=== PATIENT | female | born 1960 | race Caucasian/White ===

== ENCOUNTER 2018-06-10 05:52 | Day surgery (SDC) | payer OTHER ==
[2018-06-08 11:11] VITALS: BMI 28.7
[2018-06-10] MEDS ORDERED: methylPREDNISolone ACET (DEPO) 40 MG/1 ML VIAL ONE (07:09)
[2018-06-10] MEDS ORDERED: BUPIVACAINE HCL 0.25% 125 MG/50 ML VIAL ONE (07:10)
[2018-06-10] MEDS ORDERED: EPINEPHrine 1:1,000 1 MG/1 ML - 30ML VIAL (INJECTION) ONE (07:10)
[2018-06-10] MEDS ORDERED: MIDAZOLAM HCL 2 MG/2 ML SINGLE DOSE VIAL ONE (07:15)
[2018-06-10] MEDS ORDERED: SUCCINYLCHOLINE CHLORIDE 200 MG/10 ML VIAL ONE (07:44)
[2018-06-10] MEDS ORDERED: PROPOFOL 20 ML ONE ×3 (07:44→08:19)
[2018-06-10] MEDS ORDERED: ceFAZolin SODIUM 1 GM VIAL ONE (07:48)
[2018-06-10] MEDS ORDERED: DEXAMETHASONE SOD PHOSPHATE 4 MG/1 ML VIAL ONE (07:51)
[2018-06-10] MEDS ORDERED: ONDANSETRON 4 MG/2 ML VIAL ONE ×2 (07:51→08:50)
[2018-06-10] MEDS ORDERED: BUPIVACAINE HCL/PF 0.25% (2.5MG/ML) 10 ML VIAL IJ ONE (08:16)
[2018-06-10] MEDS ORDERED: methylPREDNISolone ACET (DEPO) 40 MG/1 ML VIAL IM ONE (08:17)
[2018-06-10] MEDS ORDERED: oxyCODONE HCL 5 MG TABLET PO PRN (08:31)
[2018-06-10] MEDS ORDERED: ONDANSETRON 4 MG/2 ML VIAL IVPUSH PRN (08:31)
--- NOTE | 2018-06-10 08:31 | OP ---
Operative Note - Note: Operative Date: 06/10/18 Pre-Operative Diagnosis: Right knee osteoarthritis Operation: Right knee arthroscopy Surgeon: Matt Ray Digestion Operator: True Hays Estimated Blood Loss (mls): 5 Fluid Volume Replaced (mls): 300 Operative Report Dictated: Yes
--- NOTE | 2018-06-10 08:32 | SURG ---
Surgery Underwriting Manager Note Underwriting Manager: True Hays PA-C Date of Service: 06/10/18 Diagnosis: Right knee osteoarthritis Procedure: Right knee arthroscopy I was present for the entirety of the operative procedure. For further detail, please refer to operative report.
[2018-06-10] MEDS ORDERED: LACTATED RINGERS SOLUTION 1,000 ML IV SCH (08:45)
[2018-06-10] MEDS ORDERED: ONDANSETRON 4 MG/2 ML VIAL IVPUSH ONE (08:45)
[2018-06-10] MEDS ORDERED: fentaNYL CITRATE 250 MCG/5 ML VIAL IVPUSH ONE (08:47)
[2018-06-10 10:33] VITALS: PULSE 81
[2018-06-10 10:52] VITALS: BP 101/72; TEMP 98
--- NOTE | 2018-06-10 21:41 | OP ---
DATE OF OPERATION: 06/10/2018 SURGEON: Matt Ray MD AIRPORT DRIVER: Eduin Ray MD PREOPERATIVE DIAGNOSIS: Medial meniscal tear with osteoarthritis, right knee. POSTOPERATIVE DIAGNOSIS: Osteoarthritis, right knee. OPERATION PERFORMED: Right arthroscopic washout, debridement, and arthroscopic lavage. ANESTHESIA: Spinal anesthesia with conscious sedation. ANTIBIOTICS GIVEN: Kefzol 2 g. PROCEDURE: Patient correctly identified, brought into the operating room. Right lower extremity was prepped, free draped in the routine manner with Betadine scrub solution, wiped off with alcohol, DuraPrep applied. The right lower extremity was examined under anesthesia. Hip was normal. Knee: No effusion. No synovial thickening and there was no, under anesthesia, significant sign of any internal derangement of the knee. A Melody test was negative. Hill-Sachs was negative. Through the anterolateral portal, the arthroscopic procedure was performed. This enabled a clear vision of the suprapatellar pouch and the lateral gutters of the popliteal hiatus. All revealed the presence of extensive amount of loose, degenerative material floating in the fluid of the arthroscopic fluid instilled into the joint. The retropatellar cartilage was relatively normal with 1 or 2 patchy areas of Outerbridge 2 level changes. The trochlear groove had only some degenerative changes along the peripheral margin of the groove, but the actual hyaline cartilage appeared to be normal. The hyaline cartilage of the femur and tibia as well as the tibial plateaus was normal excepting for the medial femoral condyle where there were Outerbridge layer 2 changes. The menisci were evaluated carefully and found to be completely intact. The intercondylar notch, the cruciate ligaments were visualized. However, there was an extensive amount of thickened ligamentum mucosa and this was left well alone. No meniscal tear was seen. DIAGNOSIS: Early osteoarthritis, right knee. The knee was lavaged appropriately, and the portals were closed with 3-0 nylon. A light dressing applied. Operation went well with no complications. Matt Ray MD DS/[id number] MTDD
== END 2018-06-10 10:35 | disposition home or self-care (01) ==
LOC: FASU 05:52
PROVIDERS: ATTEND Orthopaedic Surgery Orthopaedic Surgery of the Spine
PROC: 0SBC4ZZ Excision of Right Knee Joint, Percutaneous Endoscopic Approach (ICD-10-PCS; principal; 2018-06-10 07:30)
DX: M17.11 Unilateral primary osteoarthritis, right knee (principal)
CPT/HCPCS: 82962; 94760

== ENCOUNTER 2019-11-03 10:58 | Day surgery (SDC) | payer OTHER ==
[2019-10-27 12:47] VITALS: BMI 27.3
[2019-11-03] MEDS ORDERED: methylPREDNISolone ACET (DEPO) 40 MG/1 ML VIAL ONE ×3 (11:26→15:34)
[2019-11-03] MEDS ORDERED: BUPIVACAINE HCL/PF 2.5 MG/ML - 30 ML VIAL IJ ONE (11:26)
[2019-11-03] MEDS ORDERED: EPINEPHrine/PF 1 MG/1 ML (1:1,000) AMPULE ONE ×2 (11:28→11:29)
[2019-11-03] MEDS ORDERED: MIDAZOLAM HCL 2 MG/2 ML SINGLE DOSE VIAL ONE (14:29)
[2019-11-03] MEDS ORDERED: PROPOFOL 20 ML ONE (14:29)
[2019-11-03] MEDS ORDERED: ePHEDrine SULFATE 50 MG/1 ML AMPULE ONE (14:45)
[2019-11-03] MEDS ORDERED: KETOROLAC TROMETHAMINE 30 MG/1 ML VIAL ONE (15:38)
[2019-11-03] MEDS ORDERED: oxyCODONE HCL 5 MG TABLET PO PRN ×2 (15:54)
[2019-11-03] MEDS ORDERED: PROMETHAZINE HCL 25 MG/1 ML VIAL IVPUSH PRN (15:54)
[2019-11-03] MEDS ORDERED: ONDANSETRON 4 MG/2 ML VIAL IVPUSH PRN (15:54)
--- NOTE | 2019-11-03 15:57 | PN ---
Progress Note (short form) - Note Progress Note: 59F s/p right knee arthroscopy POD #0. -Pain control. -WBAT RLE. -Post-op analgesic meds ordered for delivery. -f/u post-op trial of void. -Diet as tolerated. -Keep dressing clean & dry; d/c on Wednesday & place waterproof Band-Aids over incision sites. -Cane vs crutches. -f/u [facility] [place] office 7-10 days; call for appointment; . Matt Ray MD (Orthopaedic Surgery).
[2019-11-03] MEDS ORDERED: PATIENT'S OWN MEDICATION (NON-FORMULARY) (Oxycodone Hcl [Oxycodone Hcl] 30 MG) PO PRN (15:59)
--- NOTE | 2019-11-03 15:59 | OP ---
Operative Note - Note: Operative Date: 11/03/19 Pre-Operative Diagnosis: Internal derangement right knee Operation: 1. Surgical arthroscopy right knee. 2. Removal of multiple loose bodies Findings: Synovial chondromatosis Grade 3 paterllar osteomalacia Surgeon: Matt Ray Laboratory Veterinarian: Eduin Ray Anesthesiologist/CONCRETING SUPERVISOR: Ki High Anesthesia: General Estimated Blood Loss (mls): 5 Fluid Volume Replaced (mls): 900 (Crystalloid) Operative Report Dictated: Yes
[2019-11-03] MEDS ORDERED: ZOLPIDEM TARTRATE 5 MG TABLET PO PRN (16:16)
[2019-11-03] MEDS ORDERED: metFORMIN HCL 500 MG TABLET (FP) PO SCH (16:30)
[2019-11-03 16:55] VITALS: TEMP 98.5
[2019-11-03 17:51] VITALS: BP 108/51; PULSE 81
[2019-11-03] MEDS ORDERED: PATIENT'S OWN MEDICATION (NON-FORMULARY) (Gabapentin [Gabapentin] 800 MG) PO SCH (22:00)
[2019-11-03] MEDS ORDERED: MONTELUKAST NA 10 MG TABLET PO SCH (22:00)
[2019-11-03] MEDS ORDERED: PATIENT'S OWN MEDICATION (NON-FORMULARY) (Zolpidem Tartrate [Ambien] 10 MG) PO SCH (22:00)
[2019-11-03] MEDS ORDERED: traZODone HCL 100 MG TABLET (FP) PO SCH (22:00)
[2019-11-03] MEDS ORDERED: PREGABALIN 100 MG CAPSULE PO SCH (22:00)
[2019-11-03] MEDS ORDERED: PATIENT'S OWN MEDICATION (NON-FORMULARY) (Metformin Hcl [Glucophage] 1,000 MG) PO SCH (22:00)
[2019-11-03] MEDS ORDERED: GABAPENTIN 400 MG CAPSULE (FP) PO SCH (22:00)
[2019-11-03] MEDS ORDERED: ROSUVASTATIN CA 5 MG TABLET (FP) PO SCH (22:00)
[2019-11-03] MEDS ORDERED: TIZANIDINE HCL 4 MG TABLET PO SCH (22:00)
[2019-11-03] MEDS ORDERED: rOPINIRole HCL 0.5 MG TABLET PO SCH (22:00)
[2019-11-03] MEDS ORDERED: MECLIZINE HCL 25 MG TABLET (FP) PO SCH (22:00)
[2019-11-03] MEDS ORDERED: DOCUSATE SODIUM 100 MG CAPSULE (FP) PO SCH (22:00)
--- NOTE | 2019-11-04 07:42 | OP ---
DATE OF OPERATION: DATE OF DICTATION: 11/03/2019 SURGEON: Matt Ray MD COUPON MANIFEST CLERK: Eduin Ray MD PREOPERATIVE DIAGNOSES: Lateral meniscal tear and lateral compartment osteoarthritis right knee. 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 ANESTHESIA: General. ANTIBIOTICS GIVEN: Kefzol 2 g. OPERATION DETAILS: Patient was correctly identified, brought in the operating room. Right lower extremity prepped, draped in the routine manner with Betadine scrub solution, wiped off with alcohol, DuraPrep applied. A right free drape applied. In the supine position, anterolateral portal utilized. The arthroscopic findings are as follows: The synovium in the suprapatellar pouch and diffusely throughout the knee revealed fibrinous synovitis. This is not acute synovitis but more chronic synovitis. Multiple extensive loose body as if rice bodies were noted in this knee and kept continuously throughout the procedure pouring into the joint copiously. The retropatellar surface of the medial facet revealed the very first signs of Outerbridge level IV, possibly III changes, but no significant change in the Outerbridge in the retropatellar surface. The hyaline cartilage of the femoral condyle in the trochlear groove revealed Outerbridge level III changes and longitudinal crack fissure noted extending from the top of the trochlear groove all the way down to the intracondylar notch. The medial femoral condyle and lateral femoral condyles appeared arthroscopically normal. It must be appreciated that throughout this procedure continuous washouts were necessary in order to remove multiple loose bodies. The cruciate ligaments were completely intact. The medial compartment was pristine. The femoral condyle, the tibial plateau as well as the medial meniscus were normal. 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 This was subjected and multiple loose bodies were washed out of this area as well. A separate port was then made anterolaterally to facilitate adequate washout and drainage of all loose fragments in this knee. Clinically the operation was performed without any complications. Closure: Skin and subcutaneous tissue 3-0 nylon, Marcaine and Depo-Medrol instilled into the joint postoperatively. CLINICAL ASSESSMENT: This is a valgus knee with a discoid meniscus and early osteoarthritic changes but significant synovial chondromatosis and the effects of multiple loose fragments within the confines of the joint. My prediction is that this lady will require repeat arthroscopic washouts to rid her of these multiple fragmenting elements, which are the result of the tips of each of these lesions being noted on the sessile ends of the synovitis. They become calcified and break off and fall into the joint. This no doubt will happen again and will require repeat washout. No need for aggressive replacement surgery at this point in time; this may however be necessary in the future. MD ABHISHEK Theodore/[id number]
[2019-11-04] MEDS ORDERED: PATIENT'S OWN MEDICATION (NON-FORMULARY) (Meloxicam [Mobic] 15 MG) PO SCH (10:00)
[2019-11-04] MEDS ORDERED: PANTOPRAZOLE 40 MG TABLET (FP) PO SCH (10:00)
[2019-11-04] MEDS ORDERED: MULTIVITAMINS (DAILY MVI) TABLET (FP) PO SCH (10:00)
[2019-11-04] MEDS ORDERED: PATIENT'S OWN MEDICATION (NON-FORMULARY) (Lisinopril [Zestril] 2.5 MG) PO SCH (10:00)
[2019-11-04] MEDS ORDERED: LISINOPRIL 5 MG TABLET (FP) PO SCH (10:00)
[2019-11-04] MEDS ORDERED: LORATADINE 10 MG TABLET PO SCH (10:00)
[2019-11-04] MEDS ORDERED: PATIENT'S OWN MEDICATION (NON-FORMULARY) (Omeprazole [Omeprazole] 40 MG) PO SCH (10:00)
[2019-11-04] MEDS ORDERED: DULoxetine HCL 60 MG CAPSULE.DR PO SCH (10:00)
[2019-11-04] MEDS ORDERED: CITALOPRAM HYDROBROMIDE 20 MG TABLET (FP) PO SCH (10:00)
== END 2019-11-03 17:45 | disposition home or self-care (01) ==
LOC: FASU 10:58
PROVIDERS: ATTEND Orthopaedic Surgery Orthopaedic Surgery of the Spine
PROC: 0SCC4ZZ Extirpation of Matter from Right Knee Joint, Percutaneous Endoscopic Approach (ICD-10-PCS; principal; 2019-11-03 12:45)
DX: M67.261 Synovial hypertrophy, not elsewhere classified, right lower leg (principal); M23.41 Loose body in knee, right knee
CPT/HCPCS: 82962; 94760

== ENCOUNTER 2019-12-18 06:02 | Day surgery (SDC) | payer OTHER ==
[2019-12-05 17:14] VITALS: BMI 27.3
[2019-12-18] MEDS ORDERED: SUCCINYLCHOLINE CHLORIDE 200 MG/10 ML SYRINGE ONE ×2 (07:31)
[2019-12-18] MEDS ORDERED: PROPOFOL 20 ML ONE (07:31)
[2019-12-18] MEDS ORDERED: MIDAZOLAM HCL 2 MG/2 ML SINGLE DOSE VIAL ONE (07:31)
[2019-12-18] MEDS ORDERED: ROCURONIUM BROMIDE 50 MG/5 ML SYRINGE ONE (08:23)
[2019-12-18] MEDS ORDERED: ceFAZolin SODIUM 1 GM VIAL IVPB ONE (08:30)
[2019-12-18] MEDS ORDERED: VANCOMYCIN 1,000 MG VIAL (RESTRICTED TO ID ONLY) IVPB ONE (08:35)
[2019-12-18] MEDS ORDERED: BENZOIN/ALOE VERA/STORAX/TOLU 58 ML BOTTLE ONE (09:12)
[2019-12-18] MEDS ORDERED: ACETAMINOPHEN INJECTION 100 ML IVPB ONE (09:38)
[2019-12-18] MEDS ORDERED: KETOROLAC TROMETHAMINE 30 MG/1 ML VIAL ONE (09:38)
[2019-12-18] MEDS ORDERED: oxyCODONE HCL 5 MG TABLET PO PRN (09:40)
[2019-12-18] MEDS ORDERED: ACETAMINOPHEN 1000 MG/100 ML VIAL (NON FORMULARY) IVPB ONE ×2 (09:40→09:42)
[2019-12-18] MEDS ORDERED: ONDANSETRON 4 MG/2 ML VIAL IVPUSH PRN (09:40)
[2019-12-18] MEDS ORDERED: KETOROLAC TROMETHAMINE 30 MG/1 ML VIAL IVPUSH ONE ×2 (09:41→10:00)
--- NOTE | 2019-12-18 09:44 | PN ---
Progress Note (short form) - Note Progress Note: 59F s/p right knee fistula resection POD #0. -Pain control: Percocet ordered to pharmacy. -Antibiotics: Augmentin 875mg PO BID x 7 days ordered to pharmacy. -Maintain right knee immobilizer. -Cane vs crutches. -WBAT RLE. -f/u post-op trial of void. -Diet as tolerated. -Keep dressing clean & dry. -f/u [facility] 12/21/2019; call for appointment; . Matt Ray MD (Orthopaedic Surgery).
[2019-12-18] MEDS ORDERED: LACTATED RINGERS SOLUTION 1,000 ML IV SCH (09:45)
[2019-12-18] MEDS ORDERED: PATIENT'S OWN MEDICATION (NON-FORMULARY) (Oxycodone Hcl [Oxycodone Hcl] 30 MG) PO PRN (09:47)
--- NOTE | 2019-12-18 09:47 | OP ---
Operative Note - Note: Operative Date: 12/18/19 Pre-Operative Diagnosis: Right knee draining fistula Operation: Right knee fistula excision Post-Operative Diagnosis: Same as Pre-op Surgeon: Matt Ray Computer Scientist: Eduin Ray Anesthesiologist/STRUCTURAL STEEL ENGINEER: Olivia Saldivar MD Anesthesia: General Specimens Removed: Right knee fistula Estimated Blood Loss (mls): 0 Fluid Volume Replaced (mls): 500 (Crystalloid) Operative Report Dictated: Yes
[2019-12-18] MEDS ORDERED: LISINOPRIL 5 MG TABLET (FP) PO SCH (10:00)
[2019-12-18] MEDS ORDERED: LORATADINE 10 MG TABLET PO SCH (10:00)
[2019-12-18] MEDS ORDERED: DULoxetine HCL 60 MG CAPSULE.DR PO SCH (10:00)
[2019-12-18] MEDS ORDERED: ENOXAPARIN NA (PORCINE) 40 MG/0.4 ML DISP.SYRIN SQ SCH (10:00)
[2019-12-18] MEDS ORDERED: PANTOPRAZOLE 40 MG TABLET PO SCH (10:00)
[2019-12-18] MEDS ORDERED: PATIENT'S OWN MEDICATION (NON-FORMULARY) (Meloxicam [Mobic] 15 MG) PO SCH (10:00)
[2019-12-18] MEDS ORDERED: rOPINIRole HCL 0.5 MG TABLET PO SCH (10:00)
[2019-12-18] MEDS ORDERED: PREGABALIN 100 MG CAPSULE PO SCH (10:00)
[2019-12-18] MEDS ORDERED: MULTIVITAMINS (DAILY MVI) TABLET (FP) PO SCH (10:00)
[2019-12-18] MEDS ORDERED: CITALOPRAM HYDROBROMIDE 20 MG TABLET PO SCH (10:00)
[2019-12-18] MEDS ORDERED: oxyCODONE HCL 5 MG TABLET ONE (13:32)
[2019-12-18] MEDS ORDERED: oxyCODONE HCL 5 MG TABLET PO ONE (13:36)
[2019-12-18] MEDS ORDERED: DOCUSATE SODIUM 100 MG CAPSULE (FP) PO SCH (14:00)
[2019-12-18] MEDS ORDERED: MECLIZINE HCL 25 MG TABLET (FP) PO SCH (14:00)
[2019-12-18] MEDS ORDERED: PATIENT'S OWN MEDICATION (NON-FORMULARY) (Gabapentin [Gabapentin] 800 MG) PO SCH (14:00)
[2019-12-18] MEDS ORDERED: TIZANIDINE HCL 4 MG TABLET PO SCH (14:00)
[2019-12-18 14:14] VITALS: TEMP 97.9
--- NOTE | 2019-12-18 15:25 | OP ---
DATE OF OPERATION: DATE OF DICTATION: 12/18/2019 SURGEON: Matt Ray MD MUTUAL FUND ANALYST: Eduin Ray MD PREOPERATIVE DIAGNOSIS: Right arthrocutaneous fistula post arthroscopic surgery. POSTOPERATIVE DIAGNOSIS: Right Arthrocutaneous fistula post arthroscopic surgery. OPERATION PERFORMED: Excision of fistula with primary closure. Application of knee immobilizer. ANESTHESIA: General. ANTIBIOTICS GIVEN: 2 g Ancef, 1 g vancomycin. TOURNIQUET TIME: 20 minutes. OPERATION DETAILS: Patient correctly identified. Brought to the operating room. Right lower extremity was prepped and draped in a routine manner with Betadine scrub solution, wiped off with alcohol, DuraPrep applied. The area of the fistula was readily noted. Flexing the fistula, there was minimal drainage, but earlier on I visualized extensive drainage from this lesion. A 3-cm incision was made in an elliptical sense excising the actual original scar. This extended all the way down to the capsule where the rent in the capsule from the arthroscopy was readily noted. The edges were excised with a 15 blade. Some of the Hoffa fat pad, which was protruding through the rent in the capsule was excised using a rongeur. Hemostasis was achieved. Incisions were closed in layers, the capsule with No. 1 Vicryl, subcutaneous 2-0 Vicryl, skin 3-0 Monocryl and Steri-Strips. A knee immobilizer applied. Operation went well. No complications. There is not a single sign of infection. No need for material to be sent to the lab for culture, etc. However, covering antibiotics have been given. MD ABHISHEK Theodore/[id number] MTDD
[2019-12-18 15:43] VITALS: BP 138/80; PULSE 75
[2019-12-18] MEDS ORDERED: metFORMIN HCL 500 MG TABLET (FP) PO SCH (16:30)
[2019-12-18] MEDS ORDERED: ZOLPIDEM TARTRATE 5 MG TABLET PO PRN (22:00)
[2019-12-18] MEDS ORDERED: traZODone HCL 100 MG TABLET (FP) PO SCH (22:00)
[2019-12-18] MEDS ORDERED: ROSUVASTATIN CA 5 MG TABLET (FP) PO SCH (22:00)
[2019-12-18] MEDS ORDERED: MONTELUKAST NA 10 MG TABLET PO SCH (22:00)
--- NOTE | 2019-12-20 17:44 | PATH ---
Surgical Pathology Report Patient Name: HARJINDER SORIANO [facility]. Rec. #: [id number] /Age/Gender: 1960 (Age: 59) / F Account: [id number] Location: [facility] Taken: 12/18/2019 Received: 12/18/2019 Reported: 12/20/2019 Physicians: Matt Ray M.D. Specimen(s) Received RIGHT KNEE SYNOVIUM Clinical History Osteoarthritis right knee, repair of synovial fistula Final Diagnosis RIGHT KNEE SYNOVIUM, EXCISION: PORTIONS OF FIBROADIPOSE AND SYNOVIAL TISSUE WITH FOCAL FIBROSIS, SURFACE HYALINIZED EXUDATE, AND MILD CHRONIC INFLAMMATION. PORTION OF SKIN WITH FOCAL FIBROSIS IN THE DERMIS. Electronically Signed Sandy Marte M.D. Gross Description Received in formalin labeled "right knee synovium," is a 3.0 x 0.3 cm dumont, elliptical, unoriented portion of skin excised to a depth of 0.3 cm. Also received within the same container is a 1.3 x 1.3 x 0.5 cm aggregate of dumont yellow soft tissue fragments, consistent with synovial tissue. Mammography Tech sections of the skin as well as the entire synovial tissue are submitted in one cassette. /12/18/2019 saudi12/18/2019
== END 2019-12-18 15:30 | disposition home or self-care (01) ==
LOC: JASU-SURG 06:02
PROVIDERS: ATTEND Orthopaedic Surgery Orthopaedic Surgery of the Spine
PROC: 0YBF0ZZ Excision of Right Knee Region, Open Approach (ICD-10-PCS; principal; 2019-12-18 08:00)
DX: M25.18 Fistula, other specified site (principal)
CPT/HCPCS: 82962; 86850; 86900; 86901; 88304-TC; 94760; J0131